=== PATIENT | female | born 1930 | race Caucasian/White ===

== ENCOUNTER → 2017-08-25 | Emergency (ER) | payer MEDICARE, MEDICAID ==
[~2017-08-25] MED LIST: Aspirin 325 MG TAB ONE; DOPamine 400 MG/D5W 250 ML 250 ML ONE; Piperacillin/Tazobactam 3.375 GM VIAL ONE; Sodium Chloride 0.9% 1,000 ML BAG ONE; Sodium Chloride 0.9% 100 ML BAG ONE
[2017-08-25 12:13] LABS: #Basophils 0.1 thou/uL (0.0-0.2); #Eosinphils 0.2 thou/uL (0.0-0.7); #Lymphocytes 4.6 thou/uL (1.20-3.40); #Monocytes 1.2 thou/uL (0.11-0.59); #Neutrophils 10.7 thou/uL (1.40-6.50); %Basophils 0.7 % (0.0-1.0); %Lymphocytes 27.3 % (21.0-51.0); %Monocytes 7.4 % (0.0-10.0); %Neutrophils 63.7 % (42.0-75.0); Hemoglobin 12.7 g/dL (12.0-16.0); Mean Corpuscular HGB CONC 30.5 g/dL (32.0-36.0); Mean Corpuscular Hemoglobin 27.1 pg (27.0-31.0); Mean Corpuscular Volume 88.8 fl (81.0-99.0); Mean Platelet Volume 5.8 fL (7.4-10.4); Platelet Count 268 thou/uL (130-400); RBC Distribution Width 14.6 % (11.5-14.5); Red Blood Cell (RBC) Count 4.69 mill/uL (4.20-5.40); White Blood Cell (WBC) Count 16.7 thou/uL (4.8-10.8)
[2017-08-25 12:28] LABS: ALT (SGPT) 10 U/L (8-55); AST (SGOT) 17 U/L (5-34); Albumin 3.4 g/dL (3.4-4.8); Alkaline Phosphatase 77 U/L (40-150); Anion Gap 19 mmol/L (10-20); BUN (Urea Nitrogen) 13 mg/dL (9.8-20.1); Bilirubin, Total 0.4 mg/dL (0.2-1.2); CK (CPK) 16 U/L (29-168); Calc. Creatinine Clearance 0 mL/min (70-130); Calcium 9.2 mg/dL (7.8-10.44); Carbon Dioxide 17 mmol/L (23-31); Chloride 105 mmol/L (98-107); Estimated GFR-MDRD 76; Globulin 3.4 g/dL (2.4-3.5); Glucose 194 mg/dL (83-110); Potassium 3.9 mmol/L (3.5-5.1); Protein, Total 6.8 g/dL (6.0-8.3); Sodium 137 mmol/L (136-145)
[2017-08-25 12:44] LABS: INR-International Normal Ratio 1.2; Prothrombin Time 15.2 SEC (12.0-14.7)
[2017-08-25 12:56] LABS: Troponin I 0.099 ng/mL (< 0.028)
[2017-08-25 13:13] LABS: pH (venous) 7.26 (7.35-7.45)
[2017-08-25 13:14] LABS: Actual Bicarbonate (HCO3v) 21 mEq/L (24-30); Base Excess -6.3 mEq/L (-2 - +2)
[2017-08-25 14:04] LABS: Bilirubin Small (Negative); Blood, Urine Small (Negative); Glucose, Urine (Dipstick) Negative (Negative); Leukocyte Moderate (Negative); Nitrite Negative (Negative); Protein, Urine (Dipstick) 100 mg/dL (Neg-Trace); Specific Gravity, Urine 1.025 (1.005-1.030); Urobilinogen 0.2 mg/dL (0.2-1.0)
[2017-08-25 14:20] LABS: Bacteria/HPF 3+ HPF (None Seen); Clarity Hazy (Clear); WBC/HPF 21-50 HPF (0-3)
[2017-08-25 19:37] LABS: Lactic Acid 6.2 mmol/L (0.5-2.2)
--- NOTE | 2017-08-26 07:24 | RAD ---
FRONTAL RADIOGRAPH CHEST: Date: 08-25-17 Comparison: 12-26-14 History: Dyspnea. FINDINGS: There is a prominent mass density filling the right lung apex measuring 8.2 cm in transverse dimensio n and 9 cm in craniocaudal dimension, markedly enlarged when compared to the 12-26-14 exam. This findi ng is concerning for malignancy. There may be an additional mass in the right cardiophrenic angle reg ion measuring in the 3.4 cm range. Descending thoracic aorta is prominent/tortuous. Left lung appears clear. Clips in the right upper quadrant suggest prior cholecystectomy. IMPRESSION: Masses are identified within the right lung, new in the cardiophrenic angle on the right and markedly enlarged in the right lung apex when compared to prior imaging. These findings are concerning for ma lignancy. Further evaluation via chest CT is suggested. Code T POS: JÚNIOR
== END ==
LOC: MADERS 11:18
DX: A41.9 Sepsis, unspecified organism (principal); R65.21 Severe sepsis with septic shock; R41.82 Altered mental status, unspecified; C34.2 Malignant neoplasm of middle lobe, bronchus or lung; R79.89 Other specified abnormal findings of blood chemistry; G90.8 Other disorders of autonomic nervous system; D69.6 Thrombocytopenia, unspecified; F03.90 Unspecified dementia, unspecified severity, without behavioral disturbance, psychotic disturbance, mood disturbance, and anxiety
CPT/HCPCS: 36415; 51701; 71045; 80053; 81003; 81015; 82274; 82553; 82805; 83605; 83880; 84484; 85025; 85610; 85730; 86850; 86900; 86901; 87040; 87077; 87086; 87186; 93005; 94640; 94760; 96361; 96365; 96366; 96367; 96368; 99292; A4353; J1265; J2543; J3370; J7050; J7620